=== PATIENT | female | born 1990 | race Two or more races ===

== ENCOUNTER 2017-12-05 15:30 | Outpatient (CLI) | payer BC ==
[2017-12-05 16:29] LABS: BASOPHILS % (AUTO) 0.5 % (0.0-2.0); EOSINOPHILS % (AUTO) 0.4 % (0.0-6.0); HEMATOCRIT 37 % (33-45); HEMOGLOBIN 12.6 g/dL (11.5-14.8); LYMPHOCYTES # (AUTO) 2.1 /CMM (0.8-4.8); LYMPHOCYTES % (AUTO) 23.9 % (20.0-44.0); MEAN CORPUSCULAR HEMOGLOBIN 26 PG (26.0-33.0); MEAN CORPUSCULAR HGB CONC 34 g/dl (31.0-36.0); MEAN CORPUSCULAR VOLUME 78 fL (82-100); MONOCYTES # (AUTO) 0.6 /CMM (0.1-1.30); MONOCYTES % (AUTO) 7.3 % (2.0-12.0); NEUTROPHILS # (AUTO) 5.9 /CMM (1.8-8.9); NEUTROPHILS % (AUTO) 67.9 % (43.0-81.0); PLATELET COUNT (AUTO) 403 /CMM (150-450); RDW COEFFICIENT OF VARIATION 13.3 (11.5-15.0); RED BLOOD CELL COUNT(AUTO) 4.78 MIL/uL (4.0-5.2); WHITE BLOOD COUNT (AUTO) 8.6 K/uL (4.3-11.0)
[2017-12-05 16:47] LABS: ALBUMIN 3.9 g/dL (3.4-5.0); BILIRUBIN,TOTAL 0.7 mg/dL (0.2-1.0); CALCIUM, SERUM 8.8 mg/dL (8.5-10.1); CREATININE 0.6 mg/dL (0.6-1.3); POTASSIUM 4.1 mmol/L (3.5-5.1)
[2017-12-05 16:59] LABS: FREE T4 (FREE THYROXINE) 0.98 ng/dL (0.76-1.46); THYROID STIMULATING HORMONE 1.902 uIU/mL (0.358-3.74)
[2017-12-06 08:08] LABS: *TESTOSTERONE, SERUM 23 ng/dL (8-48); FOLLICLE STIMULATION HORMONE 5.5 mIU/mL (.); LUTEINIZING HORMONE 13.2 mIU/mL (.); PROLACTIN 13.4 ng/mL (4.8-23.3)
[2017-12-08 14:09] LABS: *TESTOSTERONE, FREE (DIRECT) 4.1 pg/mL (0.0-4.2)
== END 2017-12-05 23:59 | disposition home or self-care (01) ==
LOC: LAB 15:30
PROVIDERS: ATTEND Family Medicine
DX: N92.6 Irregular menstruation, unspecified (principal)
CPT/HCPCS: 36415; 80053-TC; 82306; 83001; 83002; 84146; 84402; 84403; 84439-TC; 84443-TC; 85025-TC

== ENCOUNTER 2018-01-09 09:57 | Outpatient (CLI) | payer BC | END 2018-01-09 23:59 | disposition home or self-care (01) | LOC: US 09:57 | PROVIDERS: ATTEND Family Medicine | DX: N83.201 Unspecified ovarian cyst, right side (principal); N92.6 Irregular menstruation, unspecified | CPT/HCPCS: 76856-TC ==

== ENCOUNTER 2018-05-19 10:01 | Outpatient (CLI) | payer BC | END 2018-05-19 23:59 | disposition home or self-care (01) | LOC: US 10:01 | PROVIDERS: ATTEND Family Medicine | DX: N83.201 Unspecified ovarian cyst, right side (principal) | CPT/HCPCS: 76856-TC ==